=== PATIENT | male | born 1945 | race Two or more races ===

== ENCOUNTER 2019-03-29 13:36 | Outpatient (CLI) | payer MEDICARE | END 2019-03-29 23:59 | disposition home or self-care (01) | LOC: VAS 13:36 | PROVIDERS: ATTEND Family Medicine | DX: M79.605 Pain in left leg (principal); R60.0 Localized edema; Z95.1 Presence of aortocoronary bypass graft; Z87.891 Personal history of nicotine dependence | CPT/HCPCS: 93971 ==